=== PATIENT | male | born 1975 | race African-American/Black ===

== ENCOUNTER 2020-01-16 08:24 | Emergency (ER) | payer SELFPAY ==
[~2020-01-16] VITALS: Ht 185.4 cm; Wt 90.0 kg
[2020-01-16] MEDS ORDERED: [UNRECOGNIZED DRUG - REMARK] (08:48)
[2020-01-16] MEDS ORDERED: [UNRECOGNIZED DRUG - REMARK] (08:48)
[2020-01-16] MEDS ORDERED: PERCOCET 10/31 COMBO PO (09:25)
[2020-01-16] MEDS ORDERED: BACTRIM DS1 TAB PO (09:25)
[2020-01-16] MEDS ORDERED: KEFLEX500 M1 PO (09:25)
[2020-01-16 09:49] VITALS: BP 134/77
== END 2020-01-16 09:49 | disposition home or self-care (01) | DRG 603 ==
LOC: ED 08:24
PROC: 0H9GXZZ Drainage of Left Hand Skin, External Approach (ICD-10-PCS; principal; 2020-01-16)
DX: L02.512 Cutaneous abscess of left hand (principal); B95.62 Methicillin resistant Staphylococcus aureus infection as the cause of diseases classified elsewhere